=== PATIENT | female | born 1960 | race Caucasian/White ===

== ENCOUNTER → 2017-08-07 10:43 | Outpatient (CLI) | payer MEDICAID ==
[2009-05-11 11:58] VITALS: BMI 37.9
--- NOTE | ~2017-08-07 | ST ---
PATIENT:JANICE BONILLA MEDICAL RECORD: [id number] SEX: F LOCATION:[facility] ORDER #: ADMISSION DATE: 08/07/17 AGE OF PATIENT: 56 REFERRING PHYSICIAN: INTERPRETING PHYSICIAN: CAROL GIL MD DATE OF SERVICE: 08/07/2017 NUCLEAR STRESS TEST INDICATION: Chest pain of unknown etiology. PROCEDURE: She was exercised on standard Lexiscan protocol with 31.2 mCi injected at peak stress and 11.9 mCi injected for rest images previously. FINDINGS: Gated SPECT reveals preserved ejection fraction greater than 50% with good wall motion and thickening and brightening throughout all segments. SPECT imaging, sestamibi was used as myocardial perfusion agent. There was homogeneous uptake throughout all segments at rest and stress with no evidence of inducible ischemia or previous infarction. OVERALL IMPRESSION: 1. No evidence of inducible ischemia or previous infarction. 2. Gated SPECT reveals preserved ejection fraction greater than 50%. In this patient with ongoing symptomatology, if the current scan does not suggest the presence of hemodynamically significant coronary artery disease, evaluate noncardiac etiology of chest pain. TRANSINT:[id number] Voice Confirmation ID: [id number] DOCUMENT ID: [id number] CAROL GIL MD at 1218 CC: [id number] DICTATION DATE: 08/08/17 1126 FLEECE TIER: 08/09/17 0714 [facility] CLI 08/07/[address] [address]
== END | disposition home or self-care (01) ==
LOC: D.NM 10:43
DX: I20.9 Angina pectoris, unspecified (principal); E78.5 Hyperlipidemia, unspecified; E11.9 Type 2 diabetes mellitus without complications; R94.31 Abnormal electrocardiogram [ECG] [EKG]